=== PATIENT | male | born 1985 | race Caucasian/White ===

== ENCOUNTER 2017-12-07 03:32 | Emergency (ER) | payer SELFPAY ==
[~2017-12-07] VITALS: Ht 180.3 cm; Wt 111.1 kg
[2017-12-07 03:53] VITALS: Ht 180.3 cm; Wt 111.1 kg
[2017-12-07 06:14] VITALS: BP 144/94
== END 2017-12-07 06:14 | disposition home or self-care (01) ==
LOC: ED 03:32
DX: H60.502 Unspecified acute noninfective otitis externa, left ear (principal); G89.29 Other chronic pain; M54.9 Dorsalgia, unspecified